=== PATIENT | male | born 2000 | race African-American/Black ===

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

== ENCOUNTER 2022-01-11 16:44 | Emergency (ER) | payer OTHER ==
[~2022-01-11] VITALS: Ht 182.9 cm; Wt 63.5 kg
== END 2022-01-11 18:09 | disposition home or self-care (01) ==
LOC: ER 17:55
DX: H93.8X2 Other specified disorders of left ear (principal); H92.02 Otalgia, left ear
CPT/HCPCS: 99282

== ENCOUNTER 2022-08-12 20:17 | Emergency (ER) | payer OTHER ==
[~2022-08-12] VITALS: Ht 162.6 cm; Wt 68.0 kg
== END 2022-08-12 21:05 | disposition home or self-care (01) ==
LOC: ER 20:21
DX: R59.1 Generalized enlarged lymph nodes (principal)
CPT/HCPCS: 99282